=== PATIENT | female | born 1980 | race Caucasian/White ===

== ENCOUNTER 2018-11-02 17:56 | Emergency (ER) | payer OTHER ==
[2018-11-02] MEDS: HYDROCODONE/APAP (5/325) TAB PO (21:34)
== END 2018-11-02 23:37 | disposition home or self-care (01) ==
LOC: FTE 23:37
DX: S89.91XA Unspecified injury of right lower leg, initial encounter (principal); W18.39XA Other fall on same level, initial encounter; Y92.89 Other specified places as the place of occurrence of the external cause
CPT/HCPCS: 73562; 99283-25

== ENCOUNTER 2019-05-10 00:37 | Emergency (ER) | payer OTHER ==
[2019-05-10 01:19] LABS: URINE BLOOD (Dip) POC 3+ (NEGATIVE); URINE GLUCOSE (Dip) POC Negative (NEGATIVE); URINE KETONES (Dip) POC Negative (NEGATIVE); URINE LEUKOCYTE EST (Dip) POC 1+ (NEGATIVE); URINE NITRITE (Dip) POC Negative (NEGATIVE); URINE TOTAL PROTEIN POC Trace (NEGATIVE)
[2019-05-10] MEDS: KETOROLAC 30 MG INJ IM (01:25)
[2019-05-10] MEDS: HYDROCODONE/APAP (5/325) TAB PO (01:25)
== END 2019-05-10 02:03 | disposition home or self-care (01) ==
LOC: FTE 00:37
DX: N39.0 Urinary tract infection, site not specified (principal)
CPT/HCPCS: 81003; 81025; 96372; 99284-25